=== PATIENT | male | born 1990 | race Caucasian/White ===

== ENCOUNTER 2020-05-27 22:29 | Observation (INO) | payer OTHER, SELFPAY ==
[2020-05-27 22:30] VITALS: BP 145/86; PULSE 90; RESP 18; TEMP 36.8; O2SAT 98; BMI 31.7
--- NOTE | 2020-05-27 22:41 | CT_ITS ---
STUDY: CT ABDOMEN AND PELVIS WITH CONTRAST REASON FOR EXAM: Male, 30 years old. RLQ pain -- IV PO Contrast RADIATION DOSAGE (If Supplied By Facility): CTDIvol = ( 13.79 ) mGy, DLP = ( 1169.46 ) mGycm TECHNIQUE: Transaxial images were obtained from the dome of the diaphragm to the symphysis pubis with oral contrast. Oral and amp; IV Gastrografin and amp; 100mL Isovue-370 was administered. Sagittal and coronal images were reconstructed. Individualized dose optimization techniques were used for this CT. COMPARISON: None. FINDINGS: Atelectasis/scarring is noted within the lungs. 5 mm right middle lobe pulmonary nodule. The visualized portions of the heart are within normal limits. Normal liver. Normal gallbladder and extrahepatic biliary system. Splenomegaly 14 cm. Normal pancreas. Normal bilateral adrenal glands. Normal right kidney. Normal left kidney. Normal visualized stomach. There is no dilated loops of small bowel by CT criteria. No CT evidence for acute diverticulitis. There is thickening of the descending colonic wall likely related to underdistention. The oral contrast does not reach the distal small bowel or colon at the time of study. The appendix is dilated measuring 1.2 cm. There is thickening of the wall of the appendix. There is adjacent stranding. Normal abdominal aorta. Normal inferior vena cava. No free air identified. Subcentimeter short axis mesenteric lymph nodes likely reactive. Normal urinary bladder. Normal abdominal wall. There are mild degenerative changes of the visualized lumbar spine. CT/Abdomen/Pelvis WITH Contrast IMPRESSION: Enlargement of the appendix with wall thickening and adjacent stranding compatible with acute appendicitis. There is a tiny amount of free fluid. No rim-enhancing fluid collections identified. No free air is seen. Right middle lobe pulmonary nodule. Correlate with prior studies for stability versus follow-up CT scan the chest on an outpatient nonemergent basis to evaluate for any additional pulmonary nodules. Follow-up this pulmonary nodule with a CT scan and to 12 months in the absence of prior studies. Other findings as above. N.B. : The above information has been verbally conveyed by Rolf Martin MD to Dr. Susana MD, on 05/28/2020 01:40:38 (ET). Electronically Signed: Rolf Martin MD at 1:40 EDT Tel , Service support ,
--- NOTE | 2020-05-27 22:42 | ED.VISSUMM ---
- ER Visit Summary Date of Service: 05/27/20 Chief Complaint: Abdominal pain History of Present Illness: The patient is a 30 M with no primary care physician. He ports that he is right lower quadrant abdominal pain again at 6:00 this evening. Is gradually gotten worse. It is a sharp pain 7 of 10 with movement 5-10 when he is at rest. She had nausea no vomiting. No diarrhea. His last bowel was today. No melena medic easier. No dysuria or frequency. He is never had anything like this before. Patient denies any fever or chills. He does have an uncle with Crohn's disease. No personal or family history of kidney stones. He denies flank pain. Physical Examination: Vitals: Stable. Afebrile. General: Well-nourished and well-developed. Head: Normocephalic atraumatic. Neck: Supple, no lymphadenopathy. No JVD. Nontender. Cardiovascular: Regular rate and rhythm. No murmurs. Respiratory: No respiratory distress. Clear to auscultation bilaterally. Abdominal: Soft, moderate tenderness palpation in the right lower quadrant, nondistended, normal bowel sounds. No guarding, rebound, or peritoneal signs. Back: Nontender. Extremities: Nontender, no edema. Skin: Normal color, no rash. Neurologic: Alert and oriented ?3. Cranial nerves II through XII are intact. Normal strength and sensation. Psych: Normal affect. Test Results: CBC shoes a white count of 12.9 with 70 segmented neutrophils and 15 lymphocytes. Chem-7 is normal. UA is normal. CT shows appendicitis. Emergency Department Course and Treatment: Patient had an IV placed. He was given morphine and Zofran IV. He is resting more comfortably. He was given Zosyn IV. Treatment Plan: Patient was discussed with Dr. Vilchis. He will be taken to the operating room and admitted. Disposition: Admitted in stable condition. Impression: 1. Appendicitis. This note was generated with [employer] dictation software. It may contain incorrect words, spelling, and punctuation that were not noted in review of the chart prior to signing ED Disposition - Plan for ED Patient: Referrals: NOT,DEFINED [NON-STAFF] -
[2020-05-27] MEDS: Ondansetron 4 MG/2 ML Vial IV (22:57)
[2020-05-27] MEDS: Morphine 4 MG/ML Syringe IV (22:57)
[2020-05-27] MEDS: 0.9% Normal Saline 1,000 ML 1000 ML IV (22:58)
[2020-05-27 23:05] LABS: Absolute Lymphocyte Count 1.87 X10^3/uL (0.83-4.51); Basophil# 0.06 X10^3/uL; Basophil% 0.5 % (0-1); Eosinophils% 0.8 % (0-5); Hematocrit 44.1 % (40-54); Hemoglobin 15.1 g/dL (13.0-16.5); Lymphocyte # 1.87 X10^3/ul (4.0); Lymphocyte % 14.5 % (19-41); Mean Corp Hgb Conc 34.2 g/dL (32-36); Mean Corpuscular Hgb 28.9 pg (27.0-32.0); Mean Corpuscular Volume 84.5 fL (80-94); Mean Platelet Vol. 9.4 fl (6.2-12.0); Monocyte% 6.2 % (0-10); NRBC Flagged by Analyzer 0 % (0-5); Neutrophil # 10.02 X10^3/uL (2.7-7.7); Neutrophil % 77.7 % (47-70); Platelet Count 243 K/mm3 (150-450); RBC Distribution Width CV 12.6 % (11.6-14.6); RBC Distribution Width SD 38.9 fl (35.1-43.9); Red Blood Count 5.22 M/mm3 (4.6-6.2); White Blood Count 12.9 K/mm3 (4.4-11.0)
[2020-05-27 23:16] LABS: Bacteria 0 SEEN /hpf (None Seen); Color, Urine Yellow (Yellow); Glucose, Dipstick Normal (Normal); Ketone-Dipstick Negative (Negative); Leukocyte Esterase-Dipstick Negative /ul (Negative); Mucous, Urine 0 SEEN /hpf (<or=2+); Nitrite-Dipstick Negative (Negative); Occult Blood-Urine Negative /ul (Negative); Protein-Dipstick Negative (Negative); Red Blood Cells-Urine 0 SEEN /hpf (0-5); Specific Gravity, Urine 1.015 (1.002-1.030); Squamous Epithelial Cells - UA 0 SEEN /hpf (0-5); Urine Bilirubin Dipstick Negative (Negative); Urine Clarity Clear (Clear); Urine Urobilinogen Normal (Normal); Urine pH 6.5 (5.0 - 8.0); White Blood Cells 0 SEEN /hpf (0-5)
[2020-05-27 23:19] LABS: Anion Gap 7 (5-15); BUN 15 mg/dL (7-18); BUN/Creat Ratio 13.8 RATIO (10-20); Calcium,Total 9.2 mg/dL (8.5-10.1); Chloride 106 mmol/L (98-107); Creatinine, Serum 1.09 mg/dL (0.70-1.30); EST Glomerular Filtration Rate 84 mL/min (>60); Est Glom Filt Rate - Afr Amer 101 mL/min (>60); Estimated Creatinine Clearance 98.19 ml/min; Glucose 106 mg/dL (74-106); Potassium 3.8 mmol/L (3.5-5.1); Sodium Level 140 mmol/L (136-145)
[2020-05-28] VITALS (8 sets, daily range): BP systolic 110–140; BP diastolic 53–89; PULSE 72–97; RESP 16–18; TEMP 36.7–37.7; O2SAT 81–96; BMI 34.2; BMI 32.5
--- NOTE | 2020-05-28 01:11 | PCM.CONS.GEN ---
Problem List (1) Acute appendicitis Status: Acute Qualifiers: Acute appendicitis type: with localized peritonitis Appendicitis gangrene presence: without gangrene Appendicitis perforation presence: without perforation Appendicitis abscess presence: without abscess Qualified Code(s): K35.30 - Acute appendicitis with localized peritonitis, without perforation or gangrene Reason for Consult Date of Consultation: 05/28/20 History of Present Illness: The patient is a 30 M with no primary care physician. He ports that he is right lower quadrant abdominal pain again at 6:00 this evening. Is gradually gotten worse. It is a sharp pain 7 of 10 with movement 5-10 when he is at rest. She had nausea no vomiting. No diarrhea. His last bowel was today. No melena medic easier. No dysuria or frequency. He is never had anything like this before. Patient denies any fever or chills. He does have an uncle with Crohn's disease. No personal or family history of kidney stones. He denies flank pain. Past Medical History Allergies No Known Allergies Allergy (Verified 05/27/20 22:32) Home Medications: Ambulatory Orders Medication Instructions Recorded NK 05/27/20 Surgical History: no surgical history Smoking Status: Never smoker - *Family History Maternal History Items: No pertinent history Review of Systems Cardiovascular: Denies: Chest Pain, Chest Pressure, Chest Tightness, Palpitations Respiratory: Denies: Cough, Hemoptysis, Shortness of breath at rest, Shortness of breath upon exertion, Wheezing Gastrointestinal: Reports: Abdominal Pain Genitourinary: Denies: Dysuria, Frequency, Hematuria, Urgency - Physical Exam Vitals/I&O's: Vital Signs Temp Pulse Resp BP Pulse Ox 98.3 F 90 18 145/86 H 98 05/27/20 22:30 05/27/20 22:30 05/27/20 22:30 05/27/20 22:30 05/27/20 22:30 Oxygen Delivery Method Room Air Weight: 215 lb Body Mass Index (BMI) 31.7 Intake and Output for Last 24 Hours 05/26/20 05/27/20 05/28/20 23:59 23:59 23:59 Intake Total 1000 / 1000 Balance 1000 / 1000 General: Alert, Oriented x3 Lungs: Clear to auscultation Cardiovascular: Regular rate, Regular Rhythm, No murmurs Abdomen: Tender - Positive Rovsing sign positive peritoneal irritation. Microbiology Past 72 Hours 05/27/20 23:00 Mucosa - Nose SARS-CoV-2 Antigen (Rapid) - Final Laboratory Results 05/27/20 22:40: Urine Color Yellow, Urine Clarity Clear, Urine pH 6.5, Ur Specific [place] 1.015, Urine Protein Negative, Urine Glucose (UA) Normal, Urine Ketones Negative, Urine Occult Blood Negative, Urine Nitrite Negative, Urine Bilirubin Negative, Urine Urobilinogen Normal, Ur Leukocyte Esterase Negative, Urine RBC 0 SEEN, Urine WBC 0 SEEN, Ur Squamous Epith Cells 0 SEEN, Urine Bacteria 0 SEEN, Urine Mucus 0 SEEN 05/27/20 22:55: WBC 12.9 H, RBC 5.22, Hgb 15.1, Hct 44.1, MCV 84.5, MCH 28.9, MCHC 34.2, RDW Std Deviation 38.9, RDW Coeff of Tim 12.6, Plt Count 243, MPV 9.4, Immature Gran % (Auto) 0.300, Neut % (Auto) 77.7 H, Lymph % (Auto) 14.5 L, [place] % (Auto) 6.2, Eos % (Auto) 0.8, Baso % (Auto) 0.5, Absolute Neuts (auto) 10.0 H, Absolute Lymphs (auto) 1.87, Nucleated RBC % 0 05/27/20 22:55: Sodium 140, Potassium 3.8, Chloride 106, Carbon Dioxide 27.0, Anion Gap 7, BUN 15, Creatinine 1.09, Estim Creat Clear Calc 98.19, Est GFR (MDRD) Af Amer 101, Est GFR (MDRD) Non-Af 84, BUN/Creatinine Ratio 13.8, Glucose 106, Calcium 9.2 Current Medications Piperacillin Sod/Tazobactam (Sod 4.5 gm/ Sodium Chloride) 100 mls @ 200 mls/hr IV X1 ONE Stop: 05/28/20 01:13 Assessment/Plan All Active Problems Acute appendicitis (Acute) Plan is to perform a laparoscopic appendectomy. Risk benefits to include bleeding infection blood clots heart attacks pneumonia strokes possible recurrent abscesses which could require further surgeries have all been reviewed with the patient patient agrees to proceed.
--- NOTE | 2020-05-28 02:00 | APP_PTH ---
PATIENT: JOSS AYON LOC: MS3 U#:[id number] AGE/SX: 30/M ROOM: KS321 RE05/28/[address]: Dr. Jah Vilchis MD : 1990 BED: 1 DIS: 05/28/2020 SPEC #: [id number] RECD: 05/29/20 07:29 STATUS: MABLE REAmarjit #: [id number] DANIEL: 05/28/20 02:[address]: Jah Vilchis DEPT: SURGICAL PATHOLOGY RECD BY: Josie Munroe ENTERED: 05/29/20 08:00 SP TYPE: APPENDIX OTHR DR: Milady Primary Care Phys Tissues: Appendix, NOS Procedures: Surgery Specimen Level III HEADER OPERATION: Laparoscopic appendectomy PRE-OP DIAGNOSIS: Acute appendicitis TISSUE SUBMITTED: Appendix MICROSCOPIC DIAGNOSIS Appendix, appendectomy: Acute appendicitis. Acute serositis. AM:marj 05/30/2020 MICROSCOPIC DESCRIPTION Slides are reviewed. GROSS DESCRIPTION Received in fixative is one container labeled with the patient's name and designated appendix. The specimen consists of an appendix measuring 12 cm in length and up to 1.2 cm in diameter. No gross perforations are evident. Serial sections reveal a patent lumen. No mass lesion is identified. [employer]ified [employer] sections are submitted in one cassette. / AM:marj 05/29/20 TC:2 CPT: 07751
--- NOTE | 2020-05-28 02:19 | PCM.OPRPT ---
Problem List (1) Acute appendicitis Status: Acute Qualifiers: Acute appendicitis type: with localized peritonitis Appendicitis gangrene presence: without gangrene Appendicitis perforation presence: without perforation Appendicitis abscess presence: without abscess Qualified Code(s): K35.30 - Acute appendicitis with localized peritonitis, without perforation or gangrene Report of Operation Date of Procedure: 05/28/20 Pre-Operative Diagnosis: Acute appendicitis Post-Operative Diagnosis: Same Surgery/Procedure Performed:: Laparoscopic appendectomy Type of Anesthesia:: General Anesthesiologist: Zhanna Skelton Specimen's removed: Appendix Estimated Blood Loss (mL): < 25 cc Description of Procedure: Patient was brought into the operating room. Placed in the supine position. Under excellent general trach intubation the abdomen was sterilely prepped and draped in usual fashion. Local was injected infraumbilically. Dissection was carried down to the fascia. The fascia was grasped with a [place]. Varies needle was placed inside the abdomen. The abdomen was insufflated to 15 torr. A 10/12 trocar was placed without difficulty. A suprapubic #5 trocar was placed at left lower quadrant #5 trochars placed. Both of these were placed under direct visualization without injury to underlying structures. Patient was noted to have acute appendicitis he was placed in the headdown and rotated to the left position. I took the mesoappendix down with the Enseal I then transected the base of the appendix with a 45 linear cutter. Placed a specimen specimen bag and delivered through the umbilical port. I irrigated out the pelvis and right lower quadrant pneumostasis was noted. I irrigated out all the fluid that was then in above the liver area. Around the small intestine no Meckel's diverticulum was identified. I remove the trochars under direct visualization good mistakes was noted. Closed the fascia the umbilical port with a [id number] stitch of 0 Vicryl. Skin incisions were closed with subcuticular stitches of 4-0 Monocryl. Steri-Strips were applied sterile dressings were applied and the patient tolerated the procedure well. - Admit VTE Documentation VTE Present on Admission: No VTE Mechan Device Prophylaxis: SCD's VTE Pharm Prophylaxis ordered?: No Reason prophylaxis not ordered:: Treatment Not Indicated
--- NOTE | 2020-05-28 02:21 | DCINST_ITS ---
Discharge Diet: Light diet - advance as tolerated - if you have questions about your diet instructions, please talk to you doctor. Discharge Activity: May Not Drive - for 3-5 days or while taking narcotic pain meds. May shower in (days): 1 Call your doctor if your incision/area has: Continuous Slow Oozing, Sudden Increased Bleeding, Increased Pain/ Swelling, Increased Redness, Foul Smelling Discharge Call your doctor if you observe: Fever of 101 or Higher Suture Line Care: Avoid Pulling/Pushing, Avoid Pinching/Bending Additional Dressing/Incision Instructions:: Keep dressing clean and dry. Change or remove dressing in 2 days. Leave steri strips for 1 week. May protect with a gauze bandaid. Medications to take at Discharge Oxycodone HCl/Acetaminophen [Percocet 5/325] 1 - 2 tablet PO Q4H PRN PRN 6 Days #30 tablet 05/28/20 Allergies/Adverse Reactions: Allergies No Known Allergies Allergy (Verified 05/27/20 22:32) The following prescriptions were given: Oxycodone HCl/Acetaminophen [Percocet 5/325] 1 - 2 tablet PO Q4H PRN PRN 6 Days #30 tablet PRN Reason: Pain Transmission Status: Sent to [id number] Primary Care Physician: NOT,DEFINED [NON-STAFF] - Test Results: Test results from this visit will be discussed in further detail at your follow- up appointment, if applicable. Please Follow Up With: Dia Stratton, MARYJO-C - [phone] When: Call to make a follow up appointment with your doctor in 1 week.
[2020-05-28] MEDS: Bupivacaine Mpf 0.5% 30 ML VIAL (02:31)
[2020-05-28 05:14] LABS: Absolute Lymphocyte Count 0.81 X10^3/uL (0.83-4.51); Absolute Neutrophil Count 11.4 X10^3/uL (2.0-7.7); Basophil# 0.04 X10^3/uL; Basophil% 0.3 % (0-1); Eosinophil# 0.02 X10^3/uL; Eosinophils% 0.2 % (0-5); Hematocrit 40.8 % (40-54); Hemoglobin 13.4 g/dL (13.0-16.5); Lymphocyte # 0.81 X10^3/ul (4.0); Lymphocyte % 6.4 % (19-41); Mean Corp Hgb Conc 32.8 g/dL (32-36); Mean Corpuscular Hgb 28.2 pg (27.0-32.0); Mean Corpuscular Volume 85.9 fL (80-94); Mean Platelet Vol. 9.7 fl (6.2-12.0); Monocyte# 0.24 X10^3/uL; Monocyte% 1.9 % (0-10); NRBC Flagged by Analyzer 0 % (0-5); Neutrophil # 11.44 X10^3/uL (2.7-7.7); Neutrophil % 90.8 % (47-70); Platelet Count 218 K/mm3 (150-450); RBC Distribution Width CV 12.7 % (11.6-14.6); RBC Distribution Width SD 39.9 fl (35.1-43.9); Red Blood Count 4.75 M/mm3 (4.6-6.2); White Blood Count 12.6 K/mm3 (4.4-11.0)
[2020-05-28] MEDS: 0.9% Normal Saline 1,000 ML 70 ML IV (05:45)
[2020-05-28 06:33] LABS: AST(SGOT) 20 U/L (15-37); Alanine Aminotransfer ALT/SGPT 40 U/L (16-61); Albumin, Serum 3.6 g/dL (3.2-5.0); Alkaline Phosphatase 72 U/L (45-117); Anion Gap 7 (5-15); BUN 13 mg/dL (7-18); Calcium,Total 8.2 mg/dL (8.5-10.1); Chloride 109 mmol/L (98-107); Creatinine, Serum 1.08 mg/dL (0.70-1.30); EST Glomerular Filtration Rate 85 mL/min (>60); Est Glom Filt Rate - Afr Amer 103 mL/min (>60); Globulin 3.6 g/dL (2.2-4.2); Glucose 118 mg/dL (74-106); Potassium 4.3 mmol/L (3.5-5.1); Protein, Total 7.2 g/dL (6.4-8.2); Sodium Level 139 mmol/L (136-145)
[2020-05-28] MEDS: Acetaminophen 325 MG Tablet 650 MG PO (09:07)
== END 2020-05-28 12:08 | disposition home or self-care (01) ==
LOC: ED 22:57 → MS3 05-28 03:13
PROVIDERS: Admitting Provider Surgery; Emergency Provider Emergency Medicine; Visit Provider Surgery
PROC: 0DTJ4ZZ Resection of Appendix, Percutaneous Endoscopic Approach (ICD-10-PCS; CPT 44970; principal; 2020-05-28 02:00)
DX: K35.30 Acute appendicitis with localized peritonitis, without perforation or gangrene (principal)
CPT/HCPCS: 44970; 36415; 74177; 80048; 80053; 81001; 85025; 87426; 88304; 96365; 96366; 96375; 99218; 99284; J7030; J7050; Q9967; A4216; C1760; G0378; J2405